=== PATIENT | female | born 1995 | race Caucasian/White ===

== ENCOUNTER 2018-09-07 06:51 | Emergency (ER) | payer OTHER ==
[~2018-09-07] VITALS: Ht 157.5 cm; Wt 50.8 kg
--- NOTE | 2018-09-07 07:19 | Emergency Room Report ---
History of Present Illness General Chief Complaint: Skin Rash/Abscess Source: Patient Present Illness HPI Patient is a 22-year-old female who presented after injury to her hand. Patient reportedly injured her right index finger with a belt measurer. Injury occurred 2 days prior to arrival. She noticed increased pain and swelling. She had 2 rings on the finger and was unable to remove them. 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 Allergies: Coded Allergies: APPLE (Verified Allergy, Unknown, 09/07/18) Feng (Verified Allergy, Unknown, 09/07/18) PEACH (Verified Allergy, Unknown, 09/07/18) Patient History Past Medical History: see triage record Last Menstrual Period: 08/24/18 Now: No Reviewed Nursing Documentation: PMH: Agreed; PSxH: Agreed Nursing Documentation-PMH Past Medical History: No Stated History Review of Systems All Other Systems: negative except mentioned in HPI Physical Exam Vital Signs Date Time Temp Pulse Resp B/P (MAP) Pulse Ox O2 Delivery O2 Flow Rate FiO2 09/07/18 06:59 98.2 72 18 113/75 (88) 97 Room Air General Appearance: well appearing, no apparent distress, alert, GCS 15 Head: normocephalic, atraumatic ENT: hearing grossly normal, normal voice Neck: full range of motion, supple Respiratory: no respiratory distress, speaking full sentences Cardiovascular #1: normal inspection Gastrointestinal: normal inspection Musculoskeletal: swelling - right index finger Neurologic: normal inspection, alert, oriented x3, responsive, agriculture instructor III-XII nml as tested, normal gait Psychiatric: normal inspection, mood/affect normal Skin: other - abrasion to ring finger Medical Decision Making Diagnostic Impression: Primary Impression: Infected abrasion ER Course Patient presented for swelling and discomfort to the right index finger. Differential diagnosis include was not limited to ring tourniquet syndrome, cellulitis, infected abrasion among others. Patient was noted to have very tight rings to the right index finger. Rings were removed with lubricant and patient tolerated this well. Lidocaine gel was applied and patient's abrasions were cleansed. Patient was given topical antibiotics as well as oral antibiotics. Patient states that she is currently taking control pill and just finished her menses and not sexually active. Patient was noted to have what appears to be an infected abrasion. Patient was given prescriptions for Keflex as well as topical antibiotics. She is advised to keep her hand elevated as much as possible and to use ibuprofen. Patient was advised to have wound checked in 2 days. Last Vital Signs Date Time Temp Pulse Resp B/P (MAP) Pulse Ox O2 Delivery O2 Flow Rate FiO2 09/07/18 06:59 98.2 72 18 113/75 (88) 97 Room Air Status: improved Disposition: HOME, SELF-CARE Condition: Stable Scripts Bacitracin Zinc* (BACITRACIN ZINC*) 1 Each Packet 1 APPLIC TOPIC THREE TIMES A DAY, #20 PACKET Prov: Tera Euceda MD 09/07/18 Ibuprofen* (MOTRIN*) 600 Mg Tablet 600 MG ORAL Q8H PRN for For Pain, #30 TAB 0 Refills Prov: Tera Euceda MD 09/07/18 Cephalexin* (KEFLEX*) 500 Mg Capsule 500 MG ORAL EVERY 6 HOURS, #28 CAP Prov: Tera Euceda MD 09/07/18 Tera Euceda MD September 07, 2018 07:19
[2018-09-07] MEDS ORDERED: CEPHALEXIN500 MG ORAL (07:28)
[2018-09-07] MEDS ORDERED: IBUPROFEN600 MG ORAL (07:28)
[2018-09-07] MEDS ORDERED: BACITRACIN ZIN1 EACH TOPIC (07:28)
[2018-09-07] MEDS ORDERED: Bacitracin Oint UD TOPIC ONE (07:30)
[2018-09-07] MEDS ORDERED: Cephalexin 500mg cap ORAL ONE (07:30)
[2018-09-07] MEDS ORDERED: Lidocaine HCl 2% Jelly 6ml Tube TOPIC ONE (07:30)
--- NOTE | 2018-09-07 07:55 | NUR ---
ER DISCHARGE NOTE:right finger wound was cleaded and meds given with dry dressing Patient is cleared to be discharged per ERMD, pt is aox4, on room air, with stable vital signs. pt was given dc and prescription instructions, pt was able to verbalize understanding pt is able to ambulate with steady gait. pt took all belongings.
[2018-09-07 08:19] VITALS: BP 113/75
[2018-09-07 08:22] VITALS: BP 113/75
== END 2018-09-07 08:00 | disposition home or self-care (01) ==
LOC: EMR 07:37
DX: S60.414A Abrasion of right ring finger, initial encounter (principal); L08.9 Local infection of the skin and subcutaneous tissue, unspecified; X58.XXXA Exposure to other specified factors, initial encounter; Y92.9 Unspecified place or not applicable; Z91.018 Allergy to other foods
CPT/HCPCS: 99282

== ENCOUNTER → 2020-03-04 | Outpatient (CLI) | payer OTHER, BC ==
[~2020-03-04] MED LIST: BACITRACIN ZIN1 EACH TOPIC; CEPHALEXIN500 MG ORAL; IBUPROFEN600 MG ORAL
== END | disposition home or self-care (01) ==
LOC: LAB 12:08
DX: R05 Cough (principal)